=== PATIENT | female | born 1985 | race Caucasian/White ===

== ENCOUNTER 2020-12-14 06:56 | Inpatient (IN) | payer MEDICAID ==
[~2020-12-14] VITALS: Ht 152.4 cm; Wt 58.1 kg
[2020-12-14] MEDS ORDERED: ACETAMINOPHEN WITH CODEINE 300/30MG TABLET PO PRN (09:30)
[2020-12-14] MEDS ORDERED: LANOLIN OINT 7GM TUBE TOP PRN (09:30)
[2020-12-14] MEDS ORDERED: IBUPROFEN 400MG TABLET PO PRN (09:30)
[2020-12-14] MEDS ORDERED: METHYLERGONOVINE MALEATE 0.2 MG/ML IM PRN (09:45)
[2020-12-14 10:00] VITALS: BP 101/54
[2020-12-14 10:30] VITALS: BP 117/61
[2020-12-14 10:34] LABS: HEMOGLOBIN. 13.6 g/dL (12.0-16.0); MEAN CORPUSCULAR HEMOGLOBIN 30.9 pg (28.0-32.0); MEAN CORPUSCULAR VOLUME 90.5 fL (81.0-99.0); PLATELET 253 x1000/uL (130-400); RED BLOOD CELL COUNT 4.42 mill/uL (4.2-5.4); RED CELL DISTRIBUTION WIDTH 14.9 % (11.6-14.6)
[2020-12-14 11:00] VITALS: BP 115/59
[2020-12-14 11:50] LABS: *AMPHETAMINES SCREEN URINE NEGATIVE (NEGATIVE); *BARBITURATES SCREEN URINE NEGATIVE (NEGATIVE); *BENZODIAZEPINES SCREEN URINE NEGATIVE (NEGATIVE)
[2020-12-14 11:51] LABS: *COCAINE SCREEN URINE NEGATIVE (NEGATIVE); CANNABINOID URINE SCREEN NEGATIVE (NEGATIVE); METHADONE URINE SCREEN NEGATIVE (NEGATIVE); OPIATES URINE SCREEN NEGATIVE (NEGATIVE); PHENCYCLIDINE URINE SCREEN NEGATIVE (NEGATIVE)
[2020-12-14 12:31] LABS: PLATELET ESTIMATE NORMAL
[2020-12-14] MEDS ORDERED: DEXT 5%/LR + PITOCIN 20UNITS/L 1,000 ML IV ONE (13:37)
[2020-12-14] MEDS: IBUPROFEN 800MG TABLET PO PRN ×2 (13:51→21:24)
[2020-12-14] MEDS: SIMETHICONE 80MG TABLET CHEW PO SCH ×2 (13:51→21:24)
[2020-12-14 20:00] VITALS: BP 94/58
[2020-12-14] MEDS: DOCUSATE SODIUM 100MG CAPSULE PO SCH (21:24)
[2020-12-15 04:00] VITALS: BP 116/58
[2020-12-15 06:09] LABS: BASOPHILS % 0.5 % (0.0-2.0); EOSINOPHILS % 2.8 % (0.0-5.0); HEMOGLOBIN. 12.8 g/dL (12.0-16.0); MEAN CORPUSCULAR HEMOGLOBIN 30.3 pg (28.0-32.0); MEAN CORPUSCULAR VOLUME 89.8 fL (81.0-99.0); MEAN PLATELET VOLUME 8.2 fl (7.4-10.4); MONOCYTES % 5.2 % (2.0-8.0); NEUTROPHILS % 68.5 % (40.0-76.0); PLATELET 233 x1000/uL (130-400); RED BLOOD CELL COUNT 4.23 mill/uL (4.2-5.4); RED CELL DISTRIBUTION WIDTH 14.5 % (11.6-14.6)
[2020-12-15] MEDS: IBUPROFEN 800MG TABLET PO PRN ×2 (06:34→16:18)
[2020-12-15 08:00] VITALS: BP 104/69
[2020-12-15] MEDS ORDERED: PRENATAL VIT/FE FUMARATE/FA TABLET PO SCH (09:00)
[2020-12-15] MEDS: FERROUS SULFATE 325MG TABLET PO SCH ×2 (09:16→12:30)
[2020-12-15] MEDS: SIMETHICONE 80MG TABLET CHEW PO SCH ×4 (09:17→20:57)
[2020-12-15] MEDS ORDERED: DEXT 5%/LR + PITOCIN 20UNITS/L 1,000 ML IV SCH (12:00)
[2020-12-15 16:00] VITALS: BP 120/71
[2020-12-15] MEDS ORDERED: MEASLES,MUMPS&RUBELLA VACCINE 1 VIAL SUBCUT ONE (17:30)
[2020-12-15 20:00] VITALS: BP 110/70
[2020-12-15] MEDS: DOCUSATE SODIUM 100MG CAPSULE PO SCH (20:57)
[2020-12-16 05:43] VITALS: BP 108/59
[2020-12-16] MEDS ORDERED: IBUP-2030 PO (06:37)
[2020-12-16 08:00] VITALS: BP 116/76
== END 2020-12-16 12:50 | disposition home or self-care (01) | DRG 560 ==
LOC: OBSVTOIN 06:56 → 8 EST LDRP 06:56 → 8EST 09:45
PROVIDERS: ADMIT Obstetrics & Gynecology; ATTEND Obstetrics & Gynecology
PROC: 10E0XZZ Delivery of Products of Conception, External Approach (ICD-10-PCS; principal; 2020-12-16)
DX: Z39.0 Encounter for care and examination of mother immediately after delivery (principal); Z20.822 Contact with and (suspected) exposure to COVID-19
CPT/HCPCS: 36415; 80305; 85025; 86592; 86703; 86850; 86900; 87340; 87426; 90707; G0378; J2590